=== PATIENT | female | born 1995 | race Caucasian/White ===

== ENCOUNTER 2019-02-15 21:01 | Inpatient (IN) | payer OTHER ==
[~2019-02-15] VITALS: Ht 152.4 cm; Wt 2.7 kg
[2019-02-16] MEDS ORDERED: PRENATAL VITAM1 EAC3 PO (08:14)
== END 2019-02-22 10:02 | DRG 788 ==
LOC: LDR 21:01 → OB/GYN 21:01 → O/R 02-16 12:44 → OB/GYN 02-16 15:05 → LDR 02-20 07:18 → OB/GYN 02-21 11:23
PROVIDERS: ADMIT Obstetrics & Gynecology
PROC: 4A1HXCZ Monitoring of Products of Conception, Cardiac Rate, External Approach (ICD-10-PCS; 2019-02-15)
PROC: 3E033VJ Introduction of Other Hormone into Peripheral Vein, Percutaneous Approach (ICD-10-PCS; 2019-02-16)
PROC: 10D00Z1 Extraction of Products of Conception, Low, Open Approach (ICD-10-PCS; principal; 2019-02-16 16:45)
DX: O61.0 Failed medical induction of labor (principal); O13.3 Gestational [pregnancy-induced] hypertension without significant proteinuria, third trimester; O33.8 Maternal care for disproportion of other origin; O13.5 Gestational [pregnancy-induced] hypertension without significant proteinuria, complicating the puerperium; Z3A.39 39 weeks gestation of pregnancy; Z37.0 Single live birth